=== PATIENT | female | born 1985 | race Caucasian/White ===

== ENCOUNTER 2018-07-30 22:26 | Emergency (ER) | payer OTHER ==
[~2018-07-30] VITALS: Ht 162.6 cm; Wt 54.4 kg
--- NOTE | 2018-07-30 23:09 | NUR ---
LATE ENTRY: PT. TO ED WITH C/O ABD PAIN X MONTHS; TODAY WITH N/V. PT. ABLE TO PROVIDE URINE SAMPLE; SENT TO LAB. PT. PLACED ON CONTINUOUS PULSE OX AND B/P MONITORS CALL LIGHT IN REACH. FAMILY AT FOR SUPPORT. ALL SAFETY MEASURES OBSERVED.
[2018-07-30] MEDS ORDERED: ONDANSETRON ODT 4 MG ONE (23:17)
[2018-07-30] MEDS: ONDANSETRON ODT 4 MG PO ONE (23:19)
[2018-07-30 23:24] LABS: BASOPHILS % (AUTO) 1 % (0-1); EOSINOPHILS # (AUTO) 0.27 x10^3/uL (0-0.4); EOSINOPHILS % (AUTO) 2 % (1-7); LYMPHOCYTES # (AUTO) 1.87 x10^3/uL (1-3.4); LYMPHOCYTES % (AUTO) 13 % (22-44); MD NO; MEAN CORPUSCULAR HEMOGLOBIN 32.4 pg (27.0-34.8); MEAN CORPUSCULAR HGB CONC 34.4 g/dL (32.4-35.8); MEAN CORPUSCULAR VOLUME 94.2 fL (80-100); MEAN PLATELET VOLUME 8.2 fL (7.4-10.4); MONOCYTES # (AUTO) 0.89 x10^3/uL (0.2-0.8); MONOCYTES % (AUTO) 6 % (2-9); NEUTROPHILS # (AUTO) 11.67 x10^3/uL (1.8-6.8); NEUTROPHILS % (AUTO) 79 % (42-75); PLATELET COUNT 275 x10^3/uL (130-400); RED BLOOD COUNT 4.36 x10^6/uL (3.82-5.3)
[2018-07-30 23:36] LABS: ALANINE AMINOTRANSFERASE 24 U/L (12-78); ANION GAP 8 mmol/L (5-15); CALCIUM 8.9 mg/dL (8.5-10.1); CHLORIDE 109 mmol/L (98-107)
[2018-07-30 23:40] LABS: ALKALINE PHOSPHATASE 49 U/L (45-117); BILIRUBIN,TOTAL 1.2 mg/dL (0.2-1.0); TOTAL PROTEIN 7.3 g/dL (6.4-8.2)
[2018-07-30 23:44] LABS: MICROSCOPIC INDICATED
[2018-07-30 23:45] LABS: CULTURE INDICATED? NO
--- NOTE | 2018-07-31 00:02 | NUR ---
PT. PROVIDED WITH CRACKERS AND PO FLUID PER MD.
[2018-07-31 00:31] VITALS: BP 112/58
== END 2018-07-31 00:38 | disposition home or self-care (01) ==
LOC: ED 23:24
DX: K29.20 Alcoholic gastritis without bleeding (principal); F10.10 Alcohol abuse, uncomplicated; Y90.9 Presence of alcohol in blood, level not specified
CPT/HCPCS: 36415; 80053; 81001; 83690; 84703; 85025; 99283; Q0162